=== PATIENT | female | born 1995 | race African-American/Black ===

== ENCOUNTER 2017-04-01 17:34 | Emergency (ER) | payer OTHER ==
[~2017-04-01] VITALS: Ht 165.1 cm; Wt 61.0 kg
[~2017-04-01 17:34] MED LIST: IBUP800T23 PO; INDO25 PO; Z.0.NO CURRENT MEDS
[2017-04-01 17:39] VITALS: BP 137/81; PULSE 70; RESP 16; TEMP 98; O2SAT 100
--- NOTE | 2017-04-01 18:13 | PD ---
HPI Chief Complaint: Chest Pain Time Seen by Provider: 17:51 Travel History International Travel<30 days: No Contact w/Intl Traveler<30days: No Traveled to known affect area: No History of Present Illness HPI 19-year-old female came to the emergency room with history of left sided chest pain mostly just under the left clavicle. Pain is sharp in nature. Patient says this has been going on for past 2-3 days. No radiation of the pain. Pain is on and off but worse today. Pain gets worse upon sitting up or leaning forward. No history of cough or shortness of breath. No history of fever or chills. Vital signs are stable. Patient was looking very comfortable when I walked into the room to talk to her. Vital signs are stable. Patient is not a smoker. No history of recent long distance travel or prolonged immobilization. No family history of coronary artery disease among the other members in the family. PFSH Past Medical History Narrative Medical List of her past medical, surgical, social and family history is reviewed from the nursing note. Autoimmune Disease: No Blood Disorders: No Cardiovascular Problems: No Diminished Hearing: No Genitourinary: No Medical other: Yes (PCOS; high prolactin levels) Musculoskeletal: No Neurologic: No Psychiatric: No Respiratory: No Immunizations Current: Yes Tetanus Vaccination: Unknown Influenza Vaccination: Yes ?: Not LMP: 03/12/17 Past Surgical History Surgical History: No Previous Surgery Other Surgery: No Social History Alcohol Use: No Tobacco Use: No Substance Use: No Allergies-Medications (Allergen,Severity, Reaction): Coded Allergies: No Known Allergies (Verified Adverse Reaction, Unknown, 04/01/17) Comments No known drug allergies. Reported Meds & Prescriptions Reported Meds & Active Scripts Active Ibuprofen 800 Mg Tab 800 Mg PO Q6HPRN Indocin 25 Mg Cap (Indomethacin) 25 Mg Cap 25 Mg PO TID Reported No Current Meds (Miscellaneous Medication) Misc Narrative Medication List of her home medications reviewed from the nursing note. Review of Systems Except as stated in HPI: all other systems reviewed are Neg Cardiovascular: Positive: Chest Pain or Discomfort Physical Exam Narrative GENERAL: Awake, alert, no obvious distress SKIN: Focused skin assessment warm/dry. HEAD: Atraumatic. Normocephalic. EYES: Pupils equal and round. No scleral icterus. No injection or drainage. ENT: No nasal bleeding or discharge. Mucous membranes pink and moist. NECK: Trachea midline. No JVD. CARDIOVASCULAR: Regular rate and rhythm. No murmur appreciated. RESPIRATORY: No accessory muscle use. Clear to auscultation. Breath sounds equal bilaterally. GASTROINTESTINAL: Abdomen soft, non-tender, nondistended. Hepatic and splenic margins not palpable. MUSCULOSKELETAL: No obvious deformities. No clubbing. No cyanosis. No edema. NEUROLOGICAL: Awake and alert. No obvious cranial nerve deficits. Motor grossly within normal limits. Normal speech. PSYCHIATRIC: Appropriate mood and affect; insight and judgment normal. Data Data Last Documented VS Vital Signs Date Time Temp Pulse Resp B/P (MAP) Pulse Ox O2 Delivery O2 Flow Rate FiO2 04/01/17 19:42 58 16 113/79 (90) 98 04/01/17 17:39 98.0 Orders Orders Chest, Pa & Lat (04/01/17 ) Ed Urine Pregnancytest Poc (04/01/17 18:20) Ibuprofen (Motrin) (04/01/17 18:30) Ed Discharge Order (04/01/17 19:03) Electrocardiogram (04/01/17 17:47) [facility] Medical Decision Making Medical Screen Exam Complete: Yes Emergency Medical Condition: Yes Medical Record Reviewed: Yes Interpretation(s) Twelve-lead EKG was reviewed by me. Normal sinus rhythm, normal axis, nonspecific ST-T wave changes. Heart rate of 76 bpm. Differential Diagnosis Nonspecific chest pain, pericarditis Narrative Course 7:05 PM chest x-ray was ordered which is within normal limit as per the radiologist. Patient is given ibuprofen. I'm comfortable discharging her home since she has no risk factors and otherwise looks comfortable with normal vital signs and benign-looking EKG. Conveyed this to the patient and she understands. Procedures EKG Prior to Arrival: No Diagnosis Primary Impression: Atypical chest pain Referrals: Primary Care Physician 1 week Additional Instructions: Please return to the ER if condition worsens or any other new concerns. Otherwise take ibuprofen every 8 hours for next 4-5 days. After that once it stopped ibuprofen if the pain returns or continues today she see her primary care doctor. Disposition: 01 DISCHARGE HOME Condition: Stable Bandar Riddle MD Apr 01, 2017 18:13
[2017-04-01] MEDS ORDERED: IBUPROFEN 600 MG TAB PO ONE (18:30)
--- NOTE | 2017-04-01 18:43 | RADRPT ---
EXAM DATE/TIME: 04/01/2017 18:23 [facility] COMPARISON: No previous studies available for comparison. INDICATIONS : Chest pain for 4 days MEDICAL HISTORY : None. SURGICAL HISTORY : None. ENCOUNTER: Initial ACUITY: 4 - 6 days PAIN SCORE: 4/10 LOCATION: Bilateral chest FINDINGS: PA and lateral views of the chest demonstrate the lungs to be symmetrically aerated without evidence of mass, infiltrate or effusion. The cardiomediastinal contours are unremarkable. Osseous structure s are intact. CONCLUSION: No evidence of acute cardiopulmonary disease. Praneeth Cee MD on April 01, 2017 at 18:41 Board Certified Radiologist. This report was verified electronically.
[2017-04-01 19:42] VITALS: BP 113/79
--- NOTE | 2017-04-02 12:27 | EKG ---
Date Performed: 04/01/2017 Time Performed: 17:47:08 PTAGE: 22 years EKG: Sinus rhythm WITH SINUS ARRHYTHMIA NORMAL ECG PREVIOUS TRACING 10/10/13 Since the prior tracing, there has been no significant change DOCTOR: Wiliam Kimble Interpretating Date/Time 04/02/2017 12:24:10
== END 2017-04-01 19:44 | disposition home or self-care (01) ==
LOC: PHED 17:34
DX: R07.89 Other chest pain (principal)
CPT/HCPCS: 71046; 84703; 93005; 99284